=== PATIENT | female | born 1950 | race Two or more races ===

== ENCOUNTER 2025-06-26 11:38 | Emergency (ER) | payer OTHER ==
[~2025-06-26] VITALS: Ht 154.9 cm; Wt 60.0 kg
[2025-06-26 11:41] VITALS: BP 194/71; TEMP 97.7
--- NOTE | 2025-06-26 12:33 | DVH ---
CT STROKE CTH Indication: LEFT SIDED WEAKNESS EXAM DATE: 06/26/2025 12:00 PM COMPARISON: None TECHNIQUE: CT of the head without intravenous contrast. RADIATION DOSE: CTDIvol: 51 mGy, DLP: 888 mGy*cm FINDINGS: There is no intracranial hemorrhage. There is no extra-axial fluid, mass, mass effect or midline shift. The ventricles are midline and normal in size. Basilar cisterns are patent. There are mild periventricular and subcortical white matter chronic microvascular ischemic changes. Mild global cerebral volume loss. The paranasal sinuses and mastoids are well-pneumatized. Imaged portion of the orbits are unremarkable. IMPRESSION: No intracranial hemorrhage or mass effect. Mild chronic microvascular ischemic changes.
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
[2025-06-26 13:11] VITALS: PULSE 84; RESP 16; O2SAT 98
--- NOTE | 2025-06-26 14:07 | DVHHPRES ---
History of Present Illness Resident Creating Document: MALACHI SMALLWOOD RESIDENT Review of Systems Allergies: Coded Allergies: NO KNOWN ALLERGIES (Unverified , 02/10/15) Exam Vital Signs Vital Signs Date Time Temp Pulse Resp B/P (MAP) Pulse Ox O2 Delivery O2 Flow Rate FiO2 06/26/25 13:11 84 16 98 Room Air* 0 21 06/26/25 11:41 97.7 194/71 97.7 Labs/Xrays Labs Test 06/26/25 11:56 Range/Units POC Glucose 152 H 70-106 mg/dl SEPSIS Sepsis Screen Date sepsis recognized/suspect: Jun 26, 2025 Time Sepsis recognized/suspect: 114 Recent Procedure: No On Antibiotic Therapy: No Respiratory Rate >20: No Heart Rate >90: No Temp<36 C (96.8 F) or >38.3 C: No SBP <90 or MAP <65 mmHG: No New Acute Mental Status Change: No Is the patient on CPAP, BIPAP,: No Physician Orders Ct Head Cva (06/26/25 11:47) Electrocardigram (06/26/25 11:59) Complete Blood Count (06/26/25 13:35) Urinalysis (06/26/25 13:35) Basic Metabolic Panel (06/26/25 13:35) Admit (06/26/25 14:02) Code Status (06/26/25 14:02) Acetaminophen Tablet (Tylenol Tablet) (06/26/25 14:15) Ondansetron Hcl (Zofran) (06/26/25 14:15) Complete Blood Count (06/27/25 04:00) Comprehensive Metabolic Panel (06/27/25 04:00) Cardiac Diet-2gna,Lofat,Lochol (06/26/25 Dinner) Echo 2d Mode Cardiac Dop (06/26/25 14:02) Carotid Duplx W Color Dop (06/26/25 14:02) Morphine Sulfate Injection (06/26/25 14:15) Lovenox 40mg (06/27/25 10:00) Oxygen By Nasal Cannula (06/26/25 14:02) Stat Ekg For Chest Pain (06/26/25 14:02) Notify Of Changes From Base (06/26/25 14:02) Labor Economist For 24 Hours (06/26/25 14:02) Emergency Dysrhythmia Protocol (06/26/25 14:02) Rhythm Strips Once Every Shift (06/26/25 14:02) Vitamin D, 25-Hydroxy (06/26/25 14:02) Vitamin B12 (06/26/25 14:02) Urinalysis (06/26/25 14:02) Thyroid Stimulating Hormone (06/26/25 14:02) PTPTT (06/26/25 14:02) Phosphorus (06/26/25 14:02) Magnesium (06/26/25 14:02) Lipid Panel (06/26/25 14:02) Lactic Acid W/ Reflex Order (06/26/25 14:02) Hemoglobin A1c (06/26/25 14:02) Drug Screen (06/26/25 14:02) Comprehensive Metabolic Panel (06/26/25 14:02) Electrocardigram (06/26/25 14:02) Chest Xray 1 View (06/26/25 14:02) Vital Signs Date Time Temp Pulse Resp B/P (MAP) Pulse Ox O2 Delivery O2 Flow Rate FiO2 06/26/25 13:11 84 16 98 Room Air* 0 21 06/26/25 11:55 75 06/26/25 11:41 97.7 74 18 194/71 97 97.7 Assessment/Plan My Orders Orders - MALACHI SMALLWOOD RESIDENT Procedure Category Date Status Time Admit ADMIT 06/26/25 Transmitted 14:02 Code Status CODE 06/26/25 Transmitted 14:02 Acetaminophen Tablet PHA 06/26/25 Transmitted (Tylenol Tablet) 14:15 Ondansetron Hcl PHA 06/26/25 Transmitted (Zofran) 14:15 Complete Blood Count LAB 06/27/25 Verified 04:00 Comprehensive LAB 06/27/25 Verified Metabolic Panel 04:00 Cardiac DIET 06/26/25 Transmitted Diet-2gna,Lofat,Lochol Dinner Echo 2d Mode Cardiac US 06/26/25 Transmitted DOP 14:02 Carotid Duplx W Color US 06/26/25 Transmitted DOP 14:02 Morphine Sulfate PHA 06/26/25 Transmitted Injection 14:15 Lovenox 40mg PHA 06/27/25 Transmitted 10:00 Oxygen By Nasal RT 06/26/25 Verified Cannula 14:02 Stat Ekg For Chest VERITO 06/26/25 Verified Pain 14:02 Notify Of Changes [facility] 06/26/25 Verified From Base 14:02 Labor Economist For [facility] 06/26/25 Verified 24 Hours 14:02 Emergency Dysrhythmia [facility] 06/26/25 Verified Protocol 14:02 Rhythm Strips Once [facility] 06/26/25 Verified Every Shift 14:02 Vitamin D, 25-Hydroxy LAB 06/26/25 Verified 14:02 Vitamin B12 LAB 06/26/25 Verified 14:02 Urinalysis LAB 06/26/25 Verified 14:02 Thyroid Stimulating LAB 06/26/25 Verified Hormone 14:02 PTPTT LAB 06/26/25 Verified 14:02 Phosphorus LAB 06/26/25 Verified 14:02 Magnesium LAB 06/26/25 Verified 14:02 Lipid Panel LAB 06/26/25 Verified 14:02 Lactic Acid W/ Reflex LAB 06/26/25 Verified Order 14:02 Hemoglobin A1c LAB 06/26/25 Verified 14:02 Drug Screen LAB 06/26/25 Verified 14:02 Comprehensive LAB 06/26/25 Transmitted Metabolic Panel 14:02 Electrocardigram EKG 06/26/25 Transmitted 14:02 Chest Xray 1 View XY 06/26/25 Transmitted 14:02 MALACHI SMALLWOOD RESIDENT Jun 26, 2025 14:07
[2025-06-26] MEDS ORDERED: ONDANSETRON HCL 4 MG/2 ML VIAL IV PRN (14:15)
[2025-06-26] MEDS ORDERED: ACETAMINOPHEN 325 MG TAB PO PRN (14:15)
[2025-06-26 14:25] LABS: Hematocrit 39.4 % (36.0-46.0); Hemoglobin 13.1 g/dL (12.2-16.2); Mean Corpuscular Hemoglobin 29.8 pg (28.0-32.0); Mean Corpuscular Volume 89.3 fL (80.0-100.0); Nucleated Red Blood Cells % 0.0 %
[2025-06-26 14:38] LABS: INR 0.97 (0.9-1.15); Partial Thromboplastin Time 26.2 SEC (24.5-34.5); Prothrombin Time 10.3 sec (9.3-11.8)
[2025-06-26] MEDS: LISINOPRIL 5 MG TAB PO ONE (14:40)
--- NOTE | 2025-06-26 14:44 | DVH ---
CHEST RADIOGRAPH Indication: CVA Technique: Single frontal view of the chest was obtained Comparison: None FINDINGS: Lines and Tubes: None Lungs: No focal consolidation. Pleura: No effusion. No pneumothorax. Cardiomediastinal contours: Unremarkable Bones: No acute osseous abnormality. IMPRESSION: 1. No acute cardiopulmonary disease.
[2025-06-26] MEDS ORDERED: MORPHINE SULFATE 4 MG/ML SYR/VIAL IV PRN (14:45)
[2025-06-26 14:52] LABS: Alanine Aminotransferase 31 U/L (7-40); Albumin 4.7 g/dL (3.2-4.8); Anion Gap 11 (5-15); BUN/Creatinine Ratio 12.9 (10.0-20.0); Bilirubin, Total 0.3 mg/dL (0.2-1.0); Blood Urea Nitrogen 11 mg/dL (9-23); Calcium 10.1 mg/dL (8.7-10.4); Carbon Dioxide 25 mmol/L (20-31); Glucose 87 mg/dL (74-106); Potassium 4.0 mmol/L (3.5-5.1); Sodium 144 mmol/L (136-145); Total Protein 7.7 g/dL (5.7-8.2)
[2025-06-26 14:55] LABS: Magnesium 1.6 mg/dL (1.6-2.6)
[2025-06-26 14:56] LABS: Alkaline Phosphatase 127 U/L (46-116); Chloride 108 mmol/L (98-107); Cholesterol 114.0 mg/dL (< 200); Triglycerides 213.0 mg/dL (< 150)
[2025-06-26 14:57] LABS: HDL Cholesterol 33.0 mg/dL (40-59)
[2025-06-26] MEDS ORDERED: ATORVASTATIN 20 MG TAB PO SCH (22:00)
[2025-06-27] MEDS ORDERED: ENOXAPARIN SOD 40 MG/0.4 ML SYRINGE SC SCH (10:00)
[2025-06-27] MEDS ORDERED: LISINOPRIL 5 MG TAB PO SCH (10:00)
[2025-06-27] MEDS ORDERED: ASPirin-EC 81 mg tab PO SCH (10:00)
--- NOTE | 2025-06-28 20:18 | ECG ---
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
== END 2025-06-26 14:06 | disposition home or self-care (01) ==
LOC: ER 11:38 → UNDOADMIN 14:02 → OVERFLOW 14:02 → UNDODISIN 15:08
DX: G45.9 Transient cerebral ischemic attack, unspecified (principal); I10 Essential (primary) hypertension; E13.65 Other specified diabetes mellitus with hyperglycemia; F32.A Depression, unspecified
CPT/HCPCS: 36415; 70450; 71045; 80053; 80061; 82306; 82607; 82947; 82962; 83036; 83605; 83735; 84100; 84443; 85025; 85610; 85730; 93005; G0378